=== PATIENT | female | born 2000 | race Caucasian/White ===

== ENCOUNTER 2020-09-28 09:52 | Outpatient (CLI) | payer BC ==
--- NOTE | 2020-09-28 11:49 | ULT ---
LIMITED LEFT BREAST ULTRASOUND: Date: 09/28/2020 HISTORY: 20-year-old female with left breast mass. FINDINGS: Sonographic evaluation of the region of palpable concern at the 8 o'clock position of the left breast , 4.0 cm from the nipple, demonstrates a well-circumscribed, nonshadowing, solid mass measuring 8.0 x 8.0 x 5.0 mm. This most likely represents a fibroadenoma. IMPRESSION: BI-RADS Category 3 - Probably benign findings. A 6 month follow-up left breast ultrasound is recommen ded. The facility will notify patient of need for additional imaging services. POS: OFF
== END 2020-09-28 09:53 | disposition home or self-care (01) ==
LOC: BICULT 09:52
DX: N63.24 Unspecified lump in the left breast, lower inner quadrant (principal)

== ENCOUNTER 2021-08-01 08:00 | Outpatient (CLI) | payer BC | END 2021-08-01 08:01 | disposition home or self-care (01) | LOC: BICULT 08:00 | DX: N63.20 Unspecified lump in the left breast, unspecified quadrant (principal) ==